=== PATIENT | female | born 1930 | race Caucasian/White ===

== ENCOUNTER → 2017-01-09 | Outpatient (CLI) | payer MEDICARE, BC ==
[~2017-01-09] MED LIST: ACETAMINOPHEN PO; ACTONEL; AMIODARONE PO; ASPIRIN EC81 M1 PO; ASPIRIN PO; ASPIRIN81 MG PO; BACTRIM DS TABL1 TA1 PO; BAYER CHEWABLE81 MG PO; CLEOCIN HCL300 M1 PO; CLEOCIN PO; CORDARONE200 M1 PO; DARVOCET-N 1001 TAB; DOCU SOFT100 M1 PO; ELIQUIS2.5 MG PO; FOLIC ACID PO; FOSAMAX70 MG PO; FUROSEMIDE40 MG PO; KEFLEX500 MG PO; LASIX PO; LEVOTHYROXINE50 MC1 PO; LEVOTHYROXINE50 MCG PO; LEVOXYL50 MCG PO; LOPRESSOR; LOPRESSOR PO; LUMIGAN 0.01% OU; LUMIGAN2.5 ML OP; MAGNESIUM OXID200 MG PO; MEDI-MECLIZINE25 M1 PO; METOLAZONE2.5 MG PO; METOPROLOL TAR25 MG PO; PERCOCET 51 UDTAB 5/ DOB; POTASSIUM CL 10% PO; POTASSIUM20 MEQ/11 PO; POTASSIUM20 MEQ/15; POTASSIUM20 MEQ/15 PO; POTASSIUM99 M2 PO; POTASSIUM99 M3 PO; SIMVASTATIN20 MG PO; SPIRONOLACTONE50 MG PO; XALATAN OU; [UNRECOGNIZED DRUG - OTHER] SL
[2017-01-09 14:47] LABS: BUN/CREATININE RATIO 18.57; CALCIUM SERUM 8.6 mg/dL (8.4-10.2); CREATININE SERUM 0.7 mg/dL (0.6-1.4); GLOM FILT RATE Estimated 79.6 mL/min (>60); POTASSIUM 3.8 mmol/L (3.5-5.1)
== END | disposition home or self-care (01) ==
LOC: SLABONLY 13:48
PROVIDERS: Internal Medicine
DX: E87.6 Hypokalemia (principal)
CPT/HCPCS: 36415; 80048

== ENCOUNTER → 2017-03-19 | Outpatient (CLI) | payer MEDICARE, BC ==
[2017-03-19 13:06] LABS: BUN/CREATININE RATIO 16.25; CALCIUM SERUM 8.6 mg/dL (8.4-10.2); CREATININE SERUM 0.8 mg/dL (0.6-1.4); GLOM FILT RATE Estimated 67.8 mL/min (>60); POTASSIUM 3.9 mmol/L (3.5-5.1)
== END | disposition home or self-care (01) ==
LOC: SLABONLY 03-17 13:06
PROVIDERS: Internal Medicine
DX: E87.6 Hypokalemia (principal)
CPT/HCPCS: 36415; 80048